=== PATIENT | male | born 1990 | race Caucasian/White ===

== ENCOUNTER → 2017-03-19 | Day surgery (SDC) | payer OTHER ==
[~2017-03-19] VITALS: Ht 170.2 cm; Wt 79.4 kg
[~2017-03-19] MED LIST: ABILIFY5 MG PO; DOSS PO; MELOXICAM7.5 MG PO; PAXIL30 MG PO; PERCOCET 5-3251 EACH PO; ZOFRAN4 MG PO
== END | disposition home or self-care (01) ==
LOC: OR 03-17 10:30
PROVIDERS: Orthopaedic Surgery
PROC: 0MM14ZZ Reattachment of Right Shoulder Bursa and Ligament, Percutaneous Endoscopic Approach (ICD-10-PCS; 2017-03-19)
PROC: 0RQJ4ZZ Repair Right Shoulder Joint, Percutaneous Endoscopic Approach (ICD-10-PCS; principal; 2017-03-19 10:45)
DX: M25.311 Other instability, right shoulder (principal); G89.29 Other chronic pain; F41.9 Anxiety disorder, unspecified; F32.9 Major depressive disorder, single episode, unspecified; Z82.49 Family history of ischemic heart disease and other diseases of the circulatory system; Z83.3 Family history of diabetes mellitus; Z79.899 Other long term (current) drug therapy; Z98.890 Other specified postprocedural states
CPT/HCPCS: 73030; C1713; J0171; J0690; J1100; J2250; J2405; J2795; J3010; J7120